=== PATIENT | female | born 1950 | race Caucasian/White ===

== ENCOUNTER 2022-05-11 14:35 | Outpatient (CLI) | payer OTHER, SELFPAY ==
--- NOTE | 2022-05-11 14:40 | CRLHL7_ITS ---
For Patients: As a result of the Century Cures Act, medical imaging exams and procedure reports are released immediately into your electronic medical record. You may view this report before your referring provider. If you have questions, please contact your health care provider. BILATERAL SCREENING MAMMOGRAM WITH COMPUTER-AIDED DETECTION AND TOMOSYNTHESIS TECHNIQUE: CC, MLO and Implant displaced views were obtained. These mammographic images have been obtained using full-field digital technique. These mammographic images were interpreted with the benefit of computer-aided detection. Breast Tomosynthesis was used in this interpretation. COMPARISON FILM: 11/24/2019, 10/11/2018 [place]. FINDINGS: The breasts are heterogeneously dense, which may obscure small masses IMPRESSION: There is no radiographic evidence for malignancy. ASSESSMENT: BI-RADS Category 2: Benign RECOMMENDATION: Routine screening mammogram in 1 year. A lay language report of this examination will be provided to the patient. Ivan Leroy M.D. Diagnostic Radiologist [email or web address] JEFF/Dictated by: Ivan Leroy MD @ 05/26/2022 11:54:00 AM (Electronically Signed)
== END 2022-05-11 14:36 | disposition home or self-care (01) ==
LOC: MAMMO 14:38
PROVIDERS: PCP Physician Assistant Medical; Visit Provider Physician Assistant Medical
DX: Z12.31 Encounter for screening mammogram for malignant neoplasm of breast (principal); R92.2 Inconclusive mammogram
CPT/HCPCS: 77063; 77067